=== PATIENT | female | born 1980 | race Caucasian/White ===

== ENCOUNTER 2016-12-01 09:32 | Emergency (ER) | payer OTHER ==
[2016-12-01] MEDS ORDERED: Ondansetron INJ* 2 MG/ML VIAL IV ONE (09:55)
[2016-12-01] MEDS ORDERED: NS 0.9% 1000 ML* 1,000 ML IV ONE ×3 (09:55→13:21)
[2016-12-01] MEDS ORDERED: Morphine INJ* 2 MG/ML 1 ML SYRINGE IV ONE (09:55)
[2016-12-01 10:36] LABS: Hematocrit 46 % (35-47); Hemoglobin 15.5 g/dl (12.0-16.0); Mean Corpuscular HGB Conc 33 g/dl (31-36); Mean Corpuscular Hemoglobin 31 pg (27-31); Mean Corpuscular Volume 93 fL (80-97); Mean Platelet Volume 9 um3 (7.4-10.4); Red Blood Count 4.97 10^6/ul (4.0-5.4); Red Cell Distribution Width 14 % (10.5-15); White Blood Count 16.9 10^3/ul (3.5-10.8)
[2016-12-01 10:39] LABS: Urine Bacteria Absent (Absent); Urine Bilirubin Negative (Negative); Urine Glucose Negative (Negative); Urine Nitrite Negative (Negative)
[2016-12-01 10:49] LABS: ALT 12 U/L (7-52); Albumin 3.9 g/dL (3.2-5.2); Alkaline Phosphatase 83 U/L (34-104); BUN/Creatinine Ratio 12.5 (8-20); Blood Urea Nitrogen 9 mg/dL (6-24); C Reactive Protein 7.79 mg/L (< 5.00); CO2 Carbon Dioxide 21 mmol/L (22-32); Calcium 9.2 mg/dL (8.6-10.3); Chloride 106 mmol/L (101-111); EGFR African American 117.9 (>60); EGFR Non-African American 91.7 (>60); Globulin 3.2 g/dL (2-4); Glucose 102 mg/dL (70-100); Lipase < 10 U/L (11.0-82.0); Sodium 135 mmol/L (133-145); Total Protein 7.1 g/dL (6.4-8.9)
[2016-12-01 11:06] LABS: AST 11 U/L (13-39); Anion Gap 8 mmol/L (2-11)
[2016-12-01] MEDS ORDERED: Iohexol 300* (CONTRAST) 10 ML SDV IV ONE (11:53)
--- NOTE | 2016-12-01 13:01 | RAD ---
INDICATION: Lower abdominal pain since Friday with worsening. Previous and ectopic . Urinary and bowel changes. COMPARISON: No relevant prior exams available on the [facility] PACS for comparison. TECHNIQUE: Multidetector CT images were obtained from the lung bases to the ischial tuberosities with 121 mL Omnipaque 300 IV and oral contrast. Multiplanar reformation. REPORT: Unremarkable visualized inferior thorax. Decreased density of the liver consistent with fatty infiltration most focal at the medial segment of the LEFT hepatic lobe flanking the fissure for the ligamentum teres, a common location. No suspicious focal hepatic lesions or biliary dilatation. No CT abnormality of the gallbladder, pancreas, spleen. Negative for abnormality of the upper GI, small bowel, or appendix visualized along the RIGHT pelvic sidewall. Mild diverticulosis of the sigmoid colon without findings of diverticulitis. Negative for ascites, free air, hernias. Normal adrenal glands. Unremarkable kidneys with symmetric nephrograms and pyelograms. Unremarkable nondilated ureters and largely decompressed urinary bladder. Unremarkable uterus and adnexal regions. Negative for lymphadenopathy. Normal diameter abdominal aorta and iliac arteries with mild atherosclerotic plaque. Physiologic distention of the IVC. Negative for suspicious osseous lesions. IMPRESSION: 1. Fatty infiltration of the liver. 2. Normal appendix documented. 3. Mild sigmoid diverticulosis without findings of diverticulitis. 4. Negative for obstructive uropathy.
[2016-12-01 13:20] VITALS: BP 104/69
--- NOTE | 2016-12-01 18:14 | ED ---
Octavia Peterson Alfonso, scribed for Amaury Tejada MD on 12/01/16 at 1015 . Abdominal Pain/Female - HPI Summary HPI Summary: This patient is a 36 year old F presenting to [facility] with a chief complaint of worsening lower abdominal pain which began 2 days ago. The patient rates the pain 8/10 in severity. Symptoms aggravated by nothing and alleviated by lying down. The patient reports nausea, and diarrhea (soft stool not watery). The patient denies fever, chills, CP, SOB, vomiting, constipation, and urinary symptoms. She denies ever having this pain before. LNMP 2 weeks ago. Tobacco abuse disorder. Marijuana use. Occasional ETOH use. PMHx of ectopic with left tube removed (laparoscopic 2011) and two sections. - History of Current Complaint Chief Complaint: EDAbdPain Stated Complaint: ABD PAIN Time Seen by Provider: 12/01/16 09:37 Hx Obtained From: Patient Onset/Duration: Sudden Onset, Lasting Days - 2, Worse Since Timing: Constant Severity Initially: Moderate Severity Currently: Moderate Pain Intensity: 8 Pain Scale Used: 0-10 Numeric Location: Other - Lower Aggravating Factor(s): Nothing Alleviating Factor(s): Other: - Lying down Associated Signs and Symptoms: Positive: Other: - The patient reports nausea, and diarrhea (soft stool not watery). The patient denies fever, chills, CP, SOB , vomiting, constipation, and urinary symptoms. Allergies/Adverse Reactions: Allergies Allergy/AdvReac Type Severity Reaction Status Date / Time No Known Allergies Allergy Verified 07/16/12 07:35 PMH/Surg Hx/FS Hx/Imm Hx Sensory History: Denies: Hx Contacts or Glasses, Hx Hearing Aid Opthamlomology History: Denies: Hx Contacts or Glasses Neurological History: Reports: Hx Migraine - ONCE A MONTH - CLUSTER HEADACHES Psychiatric History: Reports: Hx Depression, Hx Suicide Attempt - Surgical History Surgery Procedure, Year, and Place: 2011 ECTOPIC WITH LEFT TUBE REMOVED, [place] (laparoscopic). 2003, 2005, 2007, 2009 RIGHT FOOT SURGERY, RA[place]. 1998 BILATERAL BREAST REDUCTIONLOS. 2013 . 1997 C- SECTION, RAIN Hx Anesthesia Reactions: Yes - CSECTION-WOKE EARLY, STILL INTUBATED Infectious Disease History: No Infectious Disease History: Denies: Traveled Outside the [place] in Last 30 Days - Family History Known Family History: Negative: Cardiac Disease - Social History Alcohol Use: Occasionally Alcohol Amount: today drank Substance Use Type: Reports: Marijuana Smoking Status (MU): Current Every Day Smoker Review of Systems Negative: Fever, Chills Negative: Chest Pain Negative: Shortness Of Breath Positive: Abdominal Pain - Lower, Diarrhea - soft stool not watery, Nausea, Other - Negative constipation. Negative: Vomiting Positive: no symptoms reported All Other Systems Reviewed And Are Negative: Yes Physical Exam - Summary Physical Exam Summary: VITAL SIGNS: Reviewed. GENERAL: Patient is a well-developed and nourished female who is lying comfortable in the stretcher. Patient is not in any acute respiratory distress. HEAD AND FACE: Normocephalic and atraumatic. EYES: PERRLA, EOMI x 2, No injected conjunctiva. EARS: Hearing grossly intact. Ear canals and tympanic membranes are WNL. MOUTH: Oropharynx within normal limits. NECK: Supple, trachea is midline, no adenopathy, no JVD. CHEST: Symmetric, no tenderness at palpation LUNGS: Clear to auscultation bilaterally. No wheezing or crackles. CVS: RRR, S1 and S2 present, no murmurs or gallops appreciated. ABDOMEN: Soft. Lower and RLQ tenderness No signs of distention. Positive bowel sounds. No rebound no guarding, and no masses palpated. No abdominal bruit or pulsations. EXTREMITIES: FROM in all major joints, no edema, no cyanosis or clubbing. NEURO: Alert and oriented x 3. No acute neurological deficits. Speech is normal. SKIN: Dry and warm Triage Information Reviewed: Yes Vital Signs On Initial Exam: Initial Vitals Temp Pulse Resp BP Pulse Ox 98.0 F 90 20 139/88 96 12/01/16 09:38 12/01/16 09:38 12/01/16 09:38 12/01/16 09:38 12/01/16 09:38 Vital Signs Reviewed: Yes Diagnostics - Vital Signs Vital Signs Temp Pulse Resp BP Pulse Ox 12/01/16 10:04 98.3 F 81 16 117/80 97 12/01/16 09:38 98.0 F 90 20 139/88 96 - Laboratory Lab Results: Lab Results 12/01/16 12/01/16 12/01/16 Range/Units 10:05 10:05 10:05 WBC 16.9 H (3.5-10.8) 10^3/ul RBC 4.97 (4.0-5.4) 10^6/ul Hgb 15.5 (12.0-16.0) g/dl Hct 46 (35-47) % MCV 93 (80-97) fL MCH 31 (27-31) pg MCHC 33 (31-36) g/dl RDW 14 (10.5-15) % Plt Count 263 (150-450) 10^3/ul MPV 9 (7.4-10.4) um3 Neut % (Auto) 78.6 (38-83) % Lymph % (Auto) 13.4 L (25-47) % Hood % (Auto) 5.9 (1-9) % Eos % (Auto) 1.5 (0-6) % Baso % (Auto) 0.6 (0-2) % Absolute Neuts (auto) 13.3 H (1.5-7.7) 10^3/ul Absolute Lymphs (auto) 2.3 (1.0-4.8) 10^3/ul Absolute Monos (auto) 1.0 H (0-0.8) 10^3/ul Absolute Eos (auto) 0.2 (0-0.6) 10^3/ul Absolute Basos (auto) 0.1 (0-0.2) 10^3/ul Absolute Nucleated RBC 0.01 10^3/ul Nucleated RBC % 0 Sodium 135 (133-145) mmol/L Potassium 4.0 (3.5-5.0) mmol/L Chloride 106 (101-111) mmol/L Carbon Dioxide 21 L (22-32) mmol/L Anion Gap 8 (2-11) mmol/L BUN 9 (6-24) mg/dL Creatinine 0.72 (0.51-0.95) mg/dL Est GFR ( Amer) 117.9 (>60) Est GFR (Non-Af Amer) 91.7 (>60) BUN/Creatinine Ratio 12.5 (8-20) Glucose 102 H (70-100) mg/dL Lactic Acid (0.5-2.0) mmol/L Calcium 9.2 (8.6-10.3) mg/dL Total Bilirubin 0.40 (0.2-1.0) mg/dL AST 11 L (13-39) U/L ALT 12 (7-52) U/L Alkaline Phosphatase 83 (34-104) U/L C-Reactive Protein 7.79 H (< 5.00) mg/L Total Protein 7.1 (6.4-8.9) g/dL Albumin 3.9 (3.2-5.2) g/dL Globulin 3.2 (2-4) g/dL Albumin/Globulin Ratio 1.2 (1-3) Lipase < 10 L (11.0-82.0) U/L Beta HCG, Quant < 0.60 mIU/mL Urine Color Shivani Urine Appearance Clear Urine pH 6.0 (5-9) Ur Specific [place] 1.025 (1.010-1.030) Urine Protein Negative (Negative) Urine Ketones Trace H (Negative) Urine Blood 1+ H (Negative) Urine Nitrate Negative (Negative) Urine Bilirubin Negative (Negative) Urine Urobilinogen Negative (Negative) Ur Leukocyte Esterase Trace H (Negative) Urine WBC (Auto) Trace(0-5/hpf) (Absent) Urine RBC (Auto) 3+(>10/hpf) H (Absent) Ur Squamous Epith Cells Present H (Absent) Urine Bacteria Absent (Absent) Urine Glucose Negative (Negative) 12/01/16 Range/Units 10:05 WBC (3.5-10.8) 10^3/ul RBC (4.0-5.4) 10^6/ul Hgb (12.0-16.0) g/dl Hct (35-47) % MCV (80-97) fL MCH (27-31) pg MCHC (31-36) g/dl RDW (10.5-15) % Plt Count (150-450) 10^3/ul MPV (7.4-10.4) um3 Neut % (Auto) (38-83) % Lymph % (Auto) (25-47) % Hood % (Auto) (1-9) % Eos % (Auto) (0-6) % Baso % (Auto) (0-2) % Absolute Neuts (auto) (1.5-7.7) 10^3/ul Absolute Lymphs (auto) (1.0-4.8) 10^3/ul Absolute Monos (auto) (0-0.8) 10^3/ul Absolute Eos (auto) (0-0.6) 10^3/ul Absolute Basos (auto) (0-0.2) 10^3/ul Absolute Nucleated RBC 10^3/ul Nucleated RBC % Sodium (133-145) mmol/L Potassium (3.5-5.0) mmol/L Chloride (101-111) mmol/L Carbon Dioxide (22-32) mmol/L Anion Gap (2-11) mmol/L BUN (6-24) mg/dL Creatinine (0.51-0.95) mg/dL Est GFR ( Amer) (>60) Est GFR (Non-Af Amer) (>60) BUN/Creatinine Ratio (8-20) Glucose (70-100) mg/dL Lactic Acid 0.7 (0.5-2.0) mmol/L Calcium (8.6-10.3) mg/dL Total Bilirubin (0.2-1.0) mg/dL AST (13-39) U/L ALT (7-52) U/L Alkaline Phosphatase (34-104) U/L C-Reactive Protein (< 5.00) mg/L Total Protein (6.4-8.9) g/dL Albumin (3.2-5.2) g/dL Globulin (2-4) g/dL Albumin/Globulin Ratio (1-3) Lipase (11.0-82.0) U/L Beta HCG, Quant mIU/mL Urine Color Urine Appearance Urine pH (5-9) Ur Specific [place] (1.010-1.030) Urine Protein (Negative) Urine Ketones (Negative) Urine Blood (Negative) Urine Nitrate (Negative) Urine Bilirubin (Negative) Urine Urobilinogen (Negative) Ur Leukocyte Esterase (Negative) Urine WBC (Auto) (Absent) Urine RBC (Auto) (Absent) Ur Squamous Epith Cells (Absent) Urine Bacteria (Absent) Urine Glucose (Negative) Result Diagrams: 12/01/16 10:05 12/01/16 10:05 Lab Statement: Any lab studies that have been ordered have been reviewed, and results considered in the medical decision making process. - CT A/P CT Interpretation Completed By: Radiologist - 1. Fatty infiltration of the liver. 2. Normal appendix documented. 3. Mild sigmoid diverticulosis without findings of diverticulitis. 4. Negative for obstructive uropathy. - EKG 1023 Cardiac Rate: NL - BPM 72 EKG Rhythm: Sinus Rhythm EKG Interpretation: No ST elevation Re-Evaluation - Re-Evaluation Second Eval Re-Evaluation Time: 13:12 Change: Improved Comment: Patient reports she is feeling better. She agrees with plan for discharge. Abdominal Pain Fem Course/Dx - Course Course Of Treatment: This patient is a 36 year old F presenting to [facility] with a chief complaint of worsening lower abdominal pain which began 2 days ago. The patient rates the pain 8/10 in severity. Symptoms aggravated by nothing and alleviated by lying down. The patient reports nausea, and diarrhea (soft stool not watery). The patient denies fever, chills, CP, SOB, vomiting, constipation, and urinary symptoms. She denies ever having this pain before. LNMP 2 weeks ago. Tobacco abuse disorder. Marijuana use. Occasional ETOH use. PMHx of ectopic with left tube removed (laparoscopic 2011) and two sections. Test results with no significant abnormalities except for WBC of 16.8 , and CRP of 7.79. Urinalysis is contaminated, therefore we will send for a urine culture. Because of the lower abdominal pain that was worse in the RLQ, I decided to do a CT A/P. CT A/P reveals 1. Fatty infiltration of the liver. 2. Normal appendix documented. 3. Mild sigmoid diverticulosis without findings of diverticulitis. 4. Negative for obstructive uropathy. EKG reveals NSR. In the ED course, the patient was given IV fluids, Morphine for pain, and Zofran for the nausea. In the ED course, the symptoms have improved. The patient is asymptomatic at this point. In reexamination of the abdomen, the abdomen is soft , non-tender, and with positive bowel sounds. I offered the patient a pelvic exam and she declined since she reports no history of vaginal bleeding or vaginal discharge. I also offered the patient a pelvic US and she declined since she reports that all her symptoms have resolved. She will be discharge home with PCP follow up. She will return the ED if she develops any worsening symptoms. Patient is hemodynamically stable and alert and oriented to person, place, and time. - Diagnoses Differential Diagnosis: Positive: Appendicitis, Bowel Obstruction, Constipation , Diverticulitis, Ectopic , Ovarian Cyst, Pancreatitis, Renal Colic, Urinary Tract Infection Provider Diagnoses: Abdominal pain Discharge - Discharge Plan Condition: Stable Disposition: HOME Patient Education Materials: Acute Abdominal Pain (ED) Referrals: Lucho JEROME,Ryan Le [Primary Care Provider] - 3 Days The documentation as recorded by the Octavia rivera Alfonso accurately reflects the service I personally performed and the decisions made by , Amaury Tejada MD.
== END 2016-12-01 13:26 | disposition home or self-care (01) ==
LOC: ED 09:32
DX: R10.30 Lower abdominal pain, unspecified (principal); R19.7 Diarrhea, unspecified; R11.0 Nausea; F17.210 Nicotine dependence, cigarettes, uncomplicated
CPT/HCPCS: 36415; 74177; 80053; 81003; 81015; 83605; 83690; 84702; 85025; 86140; 87086; 93005; 96374; 96375; 99283; J2270; J2405; Q9967

== ENCOUNTER → 2018-03-23 08:10 | Day surgery (SDC) | payer OTHER ==
[~2018-03-23 08:10] MED LIST: Buffered Lidocaine 0.9% SYRIN* 5 ML/SYR SYRINGE INTRADERM ONE; Buffered Lidocaine 0.9% SYRIN* 5 ML/SYR SYRINGE ONE; Bupivacaine 0.25% SDV PF* 10 ML VIAL INJ ONE; Dexamethasone IV* 4 MG/ML 1 ML (4 MG) ONE; Famotidine IV* 10 MG/ML 2 ML (20 mg) IV ONE; Famotidine IV* 10 MG/ML 2 ML (20 mg) ONE; HYDROmorphone INJ1* 1 MG/ML SYRINGE ONE; KETAMINE HCL* 50 MG/ML 10 ML VIAL ONE; Ketorolac INJ* 30 MG/ML 1 ML VIAL ONE; Lidocaine 2% PF * 5 ML VIAL ONE; Midazolam* 1 MG/ML 5 ML VIAL (5 MG) ONE; Naloxone* 0.4 MG/ML 1 ML VIAL IV PRN; Ondansetron INJ* 2 MG/ML VIAL IV PRN; Ondansetron INJ* 2 MG/ML VIAL ONE; Propofol* 10 MG/ML 20 ML BTL ONE; ceFAZolin 2 GM PREMIX in ORs 2 GM/50 ML BAG IVPB ONE; fentaNYL* 50 MCG/ML 2 ML VIAL (100 MCG VIAL) ONE; oxyCODONE/Acetamin 5/325 MG* TAB ONE; oxyCODONE/Acetamin 5/325 MG* TAB PO PRN
[2018-03-23] MEDS: fentaNYL* 50 MCG/ML 2 ML VIAL (100 MCG VIAL) IV PRN ×4 (12:51→13:38)
[2018-03-23] MEDS: HYDROmorphone INJ1* 1 MG/ML SYRINGE IV PRN ×2 (12:57→13:15)
[2018-03-23 15:58] VITALS: BP 109/88
--- NOTE | 2018-03-24 16:36 | OP ---
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 OPERATIVE PROCEDURE: Attempted hardware removal right midfoot with removal of the first TMT screw, revision of that fusion with tibial bone graft and plating as well as attempted hardware removal from the second TMT joint and interpositional arthroplasty right 5th TMT joint. DESCRIPTION OF PROCEDURE: The patient was taken to the operating room where a longitudinal incision was made through the previous approach over the dorsum of the right midfoot. Medial to the EHL tendon, we exposed the first TMT joint and were able to identify the buried head of one of the AccuTrac screws in the proximal first metatarsal. This screw we were able to remove without difficulty using the hexagonal screw truck driver teamster. We then approached the second TMT joint where the screw was visible and thoroughly exposed with a small power rob. The hexagonal screw stripped immediately. We then tried a variety of threaded removal screws and taps. None of these were able to purchase the head of the screw. We further exposed around the head of the screw trying to remove it with a plier and a needle truck driver teamster and none of these were effective. We therefore amputated the exposed head and neck of the screw with a small power rob. The defect that we had created was packed with some cancellous chips and some DBX bone. The first TMJ joint nonunion area then was exposed, opened with a 15 blade and a small [place] elevator and then prepared for repeat arthrodesis using a small power rob. We harvested some cancellous bone proximally at tibial crest through a 4 cm incision at Gerdy's tubercle, a small corticotomy was performed and some cancellous bone harvested and placed along the first TMT joint. We then replaced this with a small amount of cancellous autograft, closing the periosteum with 2-0 Vicryl sutures and a Monocryl for the skin. We then plated the first TMT joint with an Arthrex T-shaped plate under compression. Good fixation and alignment was obtained. This wound was then irrigated and closed with 2-0 Vicryl sutures, nylon for the skin. Laterally, a 4-cm incision was made over the 5th TMT joint dorsal to the peroneus brevis tendon. We placed a small Hohmann elevator into the joint to allow visualization of the cuboid articular surface which did show some regularity and arthritic changes. An 8-mm Cartiva graft was then placed in the center of the cuboid articular surface cushioning the joint. We irrigated this thoroughly closing again with 2-0 Vicryl, 3-0 nylon and a compression dressing, plaster splint applied. [id number]/[facility] #: [id number] [facility]
== END | disposition home or self-care (01) ==
LOC: OR 08:10
PROVIDERS: ATTEND Orthopaedic Surgery
DX: M96.0 Pseudarthrosis after fusion or arthrodesis (principal); M19.171 Post-traumatic osteoarthritis, right ankle and foot; I49.3 Ventricular premature depolarization; F17.200 Nicotine dependence, unspecified, uncomplicated; F41.8 Other specified anxiety disorders
CPT/HCPCS: 81025; 88300; A9270-GY; C1713; C1769; C1776; C9359; J0690; J1100; J1170; J1885; J2250; J2405; J2704; J3010; J3490